=== PATIENT | male | born 1945 | race Caucasian/White ===

== ENCOUNTER → 2017-07-06 | Outpatient (CLI) | payer OTHER, BC | LOC: MRI 07:18 | DX: R51 Headache (principal); I67.82 Cerebral ischemia; R90.82 White matter disease, unspecified ==

== ENCOUNTER 2019-02-07 08:10 | Inpatient (IN) | payer OTHER, BC ==
[~2019-02-07] VITALS: Ht 170.2 cm; Wt 66.9 kg
[2019-02-07 08:13] VITALS: BP 178/95
[2019-02-07 08:49] LABS: URINE BILIRUBIN NEGATIVE (Negative); URINE BLOOD 2+ (Negative); URINE CLARITY CLEAR; URINE COLOR YELLOW; URINE GLUCOSE-RANDOM* NEGATIVE (Negative); URINE KETONES NEGATIVE (Negative); URINE LEUKOCYTES-REFLEX NEGATIVE (Negative); URINE NITRITE-REFLEX NEGATIVE (Negative); URINE PROTEIN (DIPSTICK) 2+ (Negative); URINE UROBILINOGEN 0.2 E.U./dl (0.2-1.0)
[2019-02-07 08:50] LABS: ABSOLUTE NEUTROPHILS 4.3 thou/uL (1.4-8.2); BASOPHILS 0.5 % (0.0-2.0); EOSINOPHILS 0.5 % (0.0-3.0); HEMOGLOBIN 14.4 gm/dL (14.0-18.0); LYMPHOCYTES 24.6 % (24.0-44.0); MCH 31.9 pg (26.0-34.0); MCHC 33.5 g/dL (28.0-37.0); MCV 95.2 fL (80.0-100.0); MONOCYTES 9.9 % (1.0-8.0); PLATELET COUNT 203 thou/uL (150-400); POLYS 64.5 % (36.0-66.0); RBC 4.51 mil/uL (4.50-6.00); RDW 13.8 % (10.5-14.5); WBC 6.6 thou/uL (4.0-11.0)
[2019-02-07 08:55] LABS: ANION GAP 11 mmol/L (7-16); BUN 13 mg/dL (7-18); CHLORIDE 96 mmol/L (98-107); CO2 25 mmol/L (21-32); CREATININE 1.2 mg/dL (0.7-1.3); GLUCOSE 125 mg/dL (74-106); POTASSIUM 3.4 mmol/L (3.5-5.1); SODIUM 132 mmol/L (136-145)
[2019-02-07 08:57] LABS: AMP/METHAMP Negative (Negative); BARBITURATES Negative (Negative); BENZODIAZEPINES Negative (Negative); COCAINE Negative (Negative); METHADONE Negative (Negative); OPIATES Negative (Negative); PCP Negative (Negative)
[2019-02-07 09:01] LABS: ALBUMIN 4.5 g/dL (3.4-5.0); LIPASE 128 U/L (73-393); SALICYLATE < 2.8 mg/dL (2.8-20.0); SGOT 34 U/L (15-37); SGPT 30 U/L (30-65); TOTAL BILIRUBIN 0.5 mg/dL (<0.1-1.0); TOTAL PROTEIN 8.2 g/dL (6.4-8.2)
[2019-02-07 09:25] LABS: BACTERIA-REFLEX None Seen /HPF (None Seen); CASTS None Seen /LPF (None Seen); CRYSTALS None Seen /LPF (None Seen); SQUAMOUS None Seen /LPF (0-3); URINE RBC 3-10 Few /HPF (0-2); URINE WBC-REFLEX None Seen /HPF (0-5)
[2019-02-07] MEDS ORDERED: BUSPIRONE HCL10 MG PO (10:10)
[2019-02-07] MEDS ORDERED: FLUOXETINE HCL10 M1 PO (10:10)
[2019-02-07] MEDS ORDERED: ZETIA10 MG PO (10:11)
[2019-02-07] MEDS ORDERED: SIMVASTATIN80 MG PO (10:11)
[2019-02-07] MEDS ORDERED: FOLBIC RF TABL1 EACH PO (10:12)
[2019-02-07] MEDS ORDERED: D3 + K2 DOTS 11 EACH PO (10:13)
--- NOTE | 2019-02-07 12:29 | EKG ---
[place] [address] [facility] [facility] [employer] [address] ELECTROCARDIOGRAM REPORT Name: SCOTT BROTHERS Room #: 170-10 ADM IN M.R.#: [id number] Admission: 02/07/19 Attend Phys: Franko Baeza DO Discharge: Date of : 45 Report #: [id number] THIS REPORT FOR: //name// [facility] ED Test Date: 2019-02-07 Test Time: 08:20:36 Pat Name: SCOTT BROTHERS Department: Room: 170 Gender: M Matlab Developer: GREG : 1945 Requested By: Silvestre Dee Order Number: [id number] MD: Jitendra Harrison Measurements Intervals [place] Rate: 85 P: 43 WA: 170 QRS: -38 QRSD: 115 T: 57 QT: 368 QTc: 438 Interpretive Statements Sinus rhythm Multiform ventricular premature complexes Nonspecific IVCD with LAD No previous ECG available for comparison Electronically Signed On 02-07-2019 12:29:08 CABLE TELEVISION ACCESS COORDINATOR by Jitendra Harrison [email or web address] <ELECTRONICALLY SIGNED> By: Jitendra Harrison MD 02/07/19 1229 08 0820 Jitendra Harrison MD /SIERRA
[2019-02-07 12:46] VITALS: BP 158/85
[2019-02-07 12:53] VITALS: BP 158/85
[2019-02-07] MEDS ORDERED: ALLEGRA ALLERGY60 MG PO (12:56)
[2019-02-07] MEDS ORDERED: ATACAND4 MG PO (12:56)
[2019-02-07] MEDS ORDERED: CHILDREN'S ASPI81 MG PO (12:56)
[2019-02-07 14:09] VITALS: BP 169/96
--- NOTE | 2019-02-07 15:02 | NUR ---
1315 New patient here for suicidal ideations without a plan, patient states his anxiety is very high. Patient states he was taking excedrine migrane for headaches. He states he was tapering himself off caffiene, he states he could not get in with his primary care doctor. He was having thoughts to harm self but did not have a plan. Patient has not seen his psychiatrist in a year, so he was getting his medication from his primary doctor. patient is cooperative, well educated and just needs help managing anxiety. he has a history of ocd. Patient is cooperative and calm.
[2019-02-07 19:44] VITALS: BP 182/101
--- NOTE | 2019-02-08 00:36 | NUR ---
Care assumed of patient at 1915: Patient sitting in room at start of shift. Patient alert and oriented x4. Patient compliant with nursing assessment. Denies pain or discomfort. Patient denies SI/HI/AH/VH. Patient does report anxiety. Patient appears anxious, pacing about the halls every few minutes. Patient requested clothing and a book from his locker. Patient provided both. Patient also requested a pencil and paper to start a "to-do" list. Patient hyperverbal for this nurse. Patient asking multiple questions and making several overall complaints and frustrations. Patient expressed concern that he would not be able to sleep. AURE Zamorano, notified. Order obtained for Trazodone PRN and Seroquel PRN. Patient took HS medication without difficulty. Patient did receive Trazodone PRN with HS medication. Patient presented to the nurses station one hour later reporting that he can't sleep. Patient provided second dose of Trazodone available. Patient was able to retire to bed and has appeared to be resting well since.
[2019-02-08 08:17] VITALS: BP 125/79
[2019-02-08 09:46] VITALS: BP 113/71
[2019-02-08 10:06] VITALS: BP 113/71
--- NOTE | 2019-02-08 11:11 | NUR ---
THE PATIENT HAS BEEN COOPERATIVE AND COMPLIANT WITH MEDICATIONS AND HEALTH CARE PROVIDED BY STAFF. THE PATIENT ASKED IF THE NURSE COULS TELL HIM ABOUT ALL OF HIS MEDICATION AND IT WAS TOLD TO HIM. THE PATIENT WAS SATISFIED WITH THE INFORMATION THAT WAS GIVEN TO THE PATIENT REGARDING HIS MEDICATIONS. HE ASKED TO TAKE A SHOWER AND WAS ASIST WITH SHOWER SOURCES. THE PATIENT'S CALLED TO TALK WITH THE NURSE. THE PATIENT'S VISITED THE PATIENT TODAY. HE HAS BEEN QUIET BUT ANXIOUS.
[2019-02-08 19:15] VITALS: BP 150/84
--- NOTE | 2019-02-08 21:09 | NUR ---
Care assumed of patient at 1915: Patient alert and oriented x4. Patient calm, pleasant and cooperative. Patient remains hyperverbal, asking multiple questions. Patient interacting well with staff and peers. Patient did not isolate as much this evening and sat in the dayroom for around 1 hour. Patient denies SI/HI/AH/VH. No s/s of delusional or paranoia behaviors. Patient reports anxiety as a 0/10. Patient believes that all of his anxiety was caused by "detoxing off of caffiene" and his detox is finished. Patient did report that he needed his Trazodone PRN to assist him sleep. Patient provided dose with HS medication. Patient took HS medication whole without difficulty. Patient ate 100% HS snack. Patient denied headache or pain this evening. Patient was able to speak with his before going to bed. Patient in room resting quietly at this time.
[2019-02-09 05:52] LABS: HEMATOCRIT 34.9 % (42.0-52.0); HEMOGLOBIN 11.8 gm/dL (14.0-18.0); MCH 32.2 pg (26.0-34.0); MCHC 33.8 g/dL (28.0-37.0); MCV 95.1 fL (80.0-100.0); RBC 3.67 mil/uL (4.50-6.00); RDW 13.5 % (10.5-14.5); WBC 5.7 thou/uL (4.0-11.0)
[2019-02-09 06:13] LABS: CALCIUM 8.8 mg/dL (8.5-10.1); CREATININE 1.7 mg/dL (0.7-1.3); MAGNESIUM 1.9 mg/dL (1.8-2.4); POTASSIUM 3.4 mmol/L (3.5-5.1)
[2019-02-09 07:41] VITALS: BP 150/81
--- NOTE | 2019-02-09 12:31 | NUR ---
ALERT SAND ORIENTED X3 THIS AM. GAIT STEADY WITHOUT ASSISTIVE DEVICES AND DENIES ANY C/O PAIN OR DISCOMFORT TODAY. DESCRIBES MOOD "NERVOUS" AND RATES AMXIETY AN 8 ON 1-10 SCALE-TRIGGERD AND EXACERBATED BY PEER ON UNIT WHO IS YELLING AND CRYING THROUGHOUT AM. REQUESTED AND RECEIVED SEROQUEL 12.5MG PO PRN AT APPROX 0930 FOR ANXIETY-MED TEACHING PROVIDED PRIOR TO 1ST DOSE-DOES REPORT SOME INITIAL SEDATION BUT DOES REPORT DECREASE IN ANXIETY LEVEL TO AROUND A 4. MILDLY RESISITVE WITH ATTEMPTS TO TRY DEEP BREATHING OR OTHER RELAXATION TECHNIQUES STATING "TOO HARD" OR "CAN'T FOCUS ON THAT I'M TOO NERVOUS" WILL CONTINUE TO ENCOURAGE RELAXATION/SELF SOOTHING TECHNIQUES
[2019-02-09 20:08] VITALS: BP 141/77
--- NOTE | 2019-02-10 00:53 | NUR ---
ASSUMED CARE @ 19:15 ON 02/09/19. IN ROOM, CAME TO THE NURSES STATION, ASKED A QUESTION AND MET ONCOMMING NURSE. MODERATE ANXIETY NOTED, PT PACING FROM NURSE STATION TO ROOM REPEATEDLY. WHEN ASSESSED, PATIENT OFFERED THAT HIS ANXIETY LEVEL IS ZERO AND ASKED IF HE CAN GO HOME NOW. DISCHARGE PROTOCOL DISCUSSED, PT DENIES ANXIETY, DEPRESSION, SI, HI AND A/V HALLUCINATIONS. TOOK HS MEDS WHOLE WITH WATER, ASKING FOR NAMES AND HYERVERBAL IN DISCUSSING EACH MEDICATION IN LENGTH BEFORE TAKING. REQUESTED TRAZADONE PRN, WHICH WAS PROVIDED FOR HIM. REFUSED FLONASE NASAL SPRAL, SAYING THAT HIS IS BRINGING HIS NASOCORT. REFUSED PRN SEROQUEL. IN BED, EYES CLOSED. RESPIRATIONS EVEN AND UNLABORED. BED IN LOW POSITION, AMBULATES AD BRET AND IS CONTINENT OF B&B. WILL CONTINUE TO MONITOR Q 12 MINUTES FOR PATIENT SAFETY.
[2019-02-10 05:02] VITALS: BP 141/77
[2019-02-10 05:53] LABS: CALCIUM 8.8 mg/dL (8.5-10.1); CREATININE 1.6 mg/dL (0.7-1.3); MAGNESIUM 1.9 mg/dL (1.8-2.4); POTASSIUM 4.1 mmol/L (3.5-5.1)
[2019-02-10 09:02] VITALS: BP 127/72
[2019-02-10 13:11] VITALS: BP 127/72
--- NOTE | 2019-02-10 13:54 | NUR ---
SW called Dr Stark [phone] and confirmed the 03/07 appt, and they will set up some mental health therapy with their therapist, Irma Celestin. This therapist was provided the pt's phone number and she sets up her own sessions. This was relayed to pt's spouse.
[2019-02-10] MEDS ORDERED: PROZAC 20 MG20 MG PO (14:51)
[2019-02-10] MEDS ORDERED: FLONASE 0.05%50 MCG NASAL (14:51)
[2019-02-10] MEDS ORDERED: PROTONIX40 M1 PO (14:52)
[2019-02-10 15:30] VITALS: BP 127/72
--- NOTE | 2019-02-10 16:15 | NUR ---
PT. TO DISCHARGE THIS AFTERNOON WHEN HIS ARRIVES TO TAKE HIM HOME. ALL BELONGINGS GATHERED, SCRIPTS GONE OVER, DISCHARGE PAPERS GONE OVER. ARRIVED AT 1600. ALL DR. HDZ MET WITH HER. ALL HIS BELONGINGS, SCRIPTS, DISCHARGE PAPERS GONE OVER AND GIVEN TO FAMILY. YING Murphy WALKED AND PT. TO THEIR CAR. THEY LEFT IN THE FAMILY CAR TO RETURN HOME.
--- NOTE | 2019-02-11 22:25 | D ---
[facility] [place] [address] DISCHARGE SUMMARY Name: SCOTT BROTHERS Room #: 518B-B [facility] IN M.R.#: [id number] Admission: 02/07/19 Attend Phys: Franko Baeza DO Discharge: 02/10/19 Date of : 45 Report #: [id number] THIS REPORT FOR: //name// CC: Franko Guzman DATE OF SERVICE: 02/10/2019 PSYCHIATRIC DISCHARGE SUMMARY ATTENDING PSYCHIATRIST: Franko Baeza DO. ENGINEERING CLERK: Raghavendra La MD PRIMARY CARE PHYSICIAN: Reece Guzman MD DISCHARGE DIAGNOSIS: Unspecified anxiety. Caffeine withdrawal completed. DISCHARGE PLAN: Discharging home. Outpatient followup will be with Dr. Sweeney. He is referred for psychotherapeutic the [facility] for anxiety treatment in [place]. I also made an appointment with his primary care physician, Dr. Guzman for 02/17 at 11:00 a.m. The patient had some hyponatremia and some mild STANLEY, I believe this will be self-resolving. I did give the patient a script for a basic metabolic profile to be completed of this week before 10:00 and results faxed to me for good measure. DISCHARGE MEDICATIONS: Fluoxetine 20 mg oral daily for anxiety, fluticasone 2 sprays nasal b.i.d. for allergic rhinitis, pantoprazole 40 mg p.o. daily for GERD, buspirone 10 mg p.o. t.i.d. for anxiety, simvastatin 20 mg p.o. at bedtime for hyperlipidemia, Zetia 10 mg p.o. daily for hypertriglyceridemia, B12, folate, calcium, B6, vitamin daily, vitamin D3 1000 units p.o. daily, candesartan 4 mg p.o. daily, aspirin 81 mg p.o. daily, Renetta 60 mg p.o. daily. REASON FOR ADMISSION: The patient presented for the Emergency Room for reported SI and increased anxiety. Apparently, the patient had difficulty getting an appointment with his psychiatrist. He had gone to an urgent care, given hydroxyzine. HOSPITAL COURSE: The patient was admitted to Geriatric Psychiatry Unit. Other than increasing his fluoxetine to 20 mg for chronic anxiety, we did not do too much besides provide supportive environment. I did a conference with his , Shanita, before discharge. They do not have dangerous weapons. The patient's did not feel he was a danger to self or others. She was comfortable with discharge home. On the day of discharge, the patient was not suicidal or homicidal. [address] [address] DISCHARGE SUMMARY Name: SCOTT BROTHERS Room #: 518B-B [facility] IN ..#: [id number] Admission: 02/07/19 Attend Phys: Franko Baeza DO Discharge: 02/10/19 Date of : 45 Report #: [id number] LABORATORY DATA DURING ADMISSION: CBC: H and H 7.8 and 34.9, white count 5.7, platelet count 170. Chemistries: Sodium low at 129 on 02/09, increased to 132 on 02/10; chloride 96; BUN 22; creatinine 1.6; GFR 42; glucose 95; calcium 8.8; magnesium 1.9. Urinalysis showed largely negative. UDS was negative including marijuana. PHYSICAL EXAMINATION: VITAL SIGNS: On the day of discharge, temperature 36.7, pulse 76, respirations 12, BP 127/72. MUSCULOSKELETAL: Normal gait and station. Wearing glasses. MENTAL STATUS EXAMINATION: This is a well-developed, well-nourished male, appearing stated age. Attention intact. Concentration intact. Speech is normal rate and tone. Thought process is linear and goal oriented. Thought content focused on discharge, going home as well as pursuing psychotherapy. Mood and affect congruent and euthymic, broad range. Denied SI or HI. Denied hopelessness, helplessness. Denied auditory, visual, or tactile hallucinations. Memory not formally tested. Insight fair. Judgment fair. Fund of knowledge well below average. PROGNOSIS: For this patient is fair to good if he maintains contact with his psychiatrist including reviewing crisis procedures and pursuing psychotherapy. <ELECTRONICALLY SIGNED> By: Franko Baeza DO 02/11/19 2225 [id number] Franko Baeza DO /nt
== END 2019-02-10 16:15 | disposition home or self-care (01) | DRG 880 ==
LOC: ER 08:10 → SBH 12:17 → EROBS 12:17 → SBH 13:08
PROVIDERS: Emergency Medicine; Internal Medicine; ADMIT Psychiatry & Neurology Psychiatry
DX: F41.1 Generalized anxiety disorder (principal); N17.9 Acute kidney failure, unspecified; E87.1 Hypo-osmolality and hyponatremia; R45.851 Suicidal ideations; G43.909 Migraine, unspecified, not intractable, without status migrainosus; E78.5 Hyperlipidemia, unspecified; F32.9 Major depressive disorder, single episode, unspecified; E53.8 Deficiency of other specified B group vitamins; E55.9 Vitamin D deficiency, unspecified; Z88.1 Allergy status to other antibiotic agents; Z88.2 Allergy status to sulfonamides; Z88.8 Allergy status to other drugs, medicaments and biological substances; Z79.899 Other long term (current) drug therapy; Z79.82 Long term (current) use of aspirin
CPT/HCPCS: 10880